=== PATIENT | male | born 1985 | race Caucasian/White ===

== ENCOUNTER 2017-02-03 16:06 | Observation (INO) | payer SELFPAY ==
[~2017-02-03] VITALS: Ht 188 cm; Wt 103.1 kg
--- NOTE | ~2017-02-03 | HP ---
PATIENT'S NAME: JOVANI COLLADO [facility] AGE: 32 Y [address] ROOM: [address] [address] LOCATION: [facility] ADMIT DATE: 02/03/2017 History & Physical DISCHARGE DATE: FAMILY PHYSICIAN: PHYSICIAN, NO ATTENDING PHYSICIAN: ALEXANDRO GARCIA DATE OF SERVICE: CHIEF COMPLAINT: Bloody stools and abdominal pain. HISTORY OF PRESENT ILLNESS: The patient is a previously healthy 32-year-old male who developed multiple repeating episodes of abdominal cramps and bloody mucousy diarrhea. These happened earlier in the day and he had to stop at multiple rest stops as he is a dedicated truck driver with multiple bowel movements of mucus and red blood. The patient denies any fevers or chills, but did have some nausea without vomiting associated with these symptoms. He has never had a similar presentation in the past. He had a mostly unremarkable workup in the ER except for a white count of 12 and a CAT scan which showed contracted distal colon and sigmoid. He denies any recent travel or exposure to sick contacts. He does admit approximately a 10-pound weight loss in the last couple of months that is typical for him of the summer months when he eats less. FAMILY HISTORY: The patient tells me that his mother may have Crohn's disease, but he is not sure. No other IBD in his family. REVIEW OF SYSTEMS: All systems have been reviewed and are negative aside from pertinent positives mentioned above. PAST MEDICAL HISTORY: Knee surgery. SOCIAL HISTORY: The patient is a dedicated truck driver. Smokes approximately half-a-pack cigarettes a day, but trying to quit. Endorses approximately 12 to 14 alcoholic beverages use per month and no other toxic habits. CURRENT MEDICATIONS: None. PATIENT'S NAME: JOVANI COLLADO [facility] AGE: 32 Y [address] ROOM: [address] [address] LOCATION: [facility] ADMIT DATE: 02/03/2017 History & Physical DISCHARGE DATE: FAMILY PHYSICIAN: PHYSICIAN, REE ATTENDING PHYSICIAN: ALEXANDRO GARCIA PHYSICAL EXAMINATION: VITAL SIGNS: Temperature 98.2, pulse is 70, respirations are 16, blood pressure 130/76, and saturating 94% on room air. GENERAL: Appears as a well-developed, well-nourished, young male, in no acute distress. NEUROLOGIC: Exam is nonfocal. EYES: Exam shows pupils are equal and reactive to light. LYMPHATICS: Exam shows no cervical lymphadenopathy. ENDOCRINE: Exam shows no thyromegaly. LUNGS: Clear to auscultation. HEART: Rate is regular. GI: Abdomen is soft, diffusely tender with a positive Chris sign, and diminished bowel sounds especially in the left upper quadrant. : Reveals no costovertebral angle tenderness. VASCULAR: A 2+ pedal pulses. MUSCULOSKELETAL: Exam is unremarkable. SKIN: Warm and dry. PSYCHIATRIC: Appropriate mood, cognition, and affect. LABORATORY DATA: Studies performed in the ER also significant for an AST of 49 in addition to the abnormalities mentioned in the HPI. ASSESSMENT AND PLAN: This is a 32-year-old male who will be admitted for observation with hematochezia, but no anemia. The patient has been started on Cipro and Flagyl and will continue these until we get his stool studies back. We will provide him with hydration and symptomatic support. We will get a right upper quadrant ultrasound to rule out possible cholecystitis given positive Chris's sign and a very mild elevation of AST. We will consider Gastroenterology evaluation. Additional management will depend on clinical course. Tobaccoism. We will offer the patient nicotine patch, which he agreed to use. Additional management will depend on clinical course. Time dedicated to this admission is 25 minutes. MD ELVIA THACKER/chase PATIENT'S NAME: JOVANI COLLADO [facility] AGE: 32 Y [address] ROOM: [address] [address] LOCATION: [facility] ADMIT DATE: 02/03/2017 History & Physical DISCHARGE DATE: FAMILY PHYSICIAN: PHYSICIAN, NO ATTENDING PHYSICIAN: ALEXANDRO GARCIA /[id number] D: 143 T: 402 HISTORY & PHYSICAL
--- NOTE | ~2017-02-03 | DS ---
PATIENT'S NAME: JOVANI COLLADO [facility] AGE: 32 Y [address] ROOM: [id number] [place], [place] [address] LOCATION: [facility] ADMIT DATE: 02/03/2017 Discharge Summary DISCHARGE DATE: 02/05/2017 FAMILY PHYSICIAN: PHYSICIAN, NO ATTENDING PHYSICIAN: Johan Acosta V DISCHARGE DIAGNOSES: 1. Colitis. 2. Hematochezia without anemia. 3. Nausea. 4. Heartburn. HOSPITAL COURSE: Please refer to admitting history and physical as dictated by Dr. Lu. Briefly, the patient was admitted to [facility] with hematochezia and abdominal cramping. He had 1 episode of bloody diarrhea while admitting and subsequently had no further. C. diff was negative. O and P were negative. Hemoglobin upon admit was 15.3, WBC 12.0, fecal white blood cells were positive, occult blood was positive. CT scan of his abdomen was negative except for noted transverse colon was markedly contracted. Ultrasound of the abdomen was unremarkable. The patient was started on IV fluids. Percocet and morphine were used to manage his pain. He was made n.p.o. Dr. Nguyen did kindly see the patient. Recommended a flexible sigmoidoscopy which was performed on 02/05/2017. There was noted to have a small area of erythema in the sigmoid colon, which was biopsied. Further solid stool prevented further examination. It was recommended that he proceed with an EGD and colonoscopy the following day, however, the patient wanted to eat solid food. Therefore, he ate a sandwich, it was discussed in detail the need for colonoscopy and EGD. The patient was agreeable to proceed. Discussed with Dr. Nguyen, he recommended to follow up as an outpatient with EGD and colonoscopy next week and to continue Cipro and Flagyl for 10 days. He was noted to have some dizziness. Orthostatic blood pressures were checked, it was recommended that he change position slowly. He was tolerating a regular diet on the day of discharge. His abdominal pain was well controlled with an occasional Percocet. His vital signs were stable. Instructed the patient that he cannot drive while taking narcotics. He should avoid NSAIDs, aspirin, ibuprofen and Aleve etc., and on 02/05/2017, the patient was stable. It was recommended he could be discharged to home. He did need a primary care provider and wished to follow up with [facility]. I did call and speak with Dr. Dillon Hoffman. He will follow the patient next week with the CBC and BMP at that time. LABORATORY DATA: Sodium stable 139 to 141, potassium 3.8 to 4.0, glucose 98, BUN 11 to 13, creatinine 0.8. Alkaline phosphatase is 60, AST 49, upon admit 41 the following day, ALT 70 upon admit 59 the following day, GFR remained greater than 60. Amylase 27, lipase 139, CRP less than 0.29. WBC 12.0 upon PATIENT'S NAME: JOVANI COLLADO [facility] AGE: 32 Y [address] ROOM: [address] [address] LOCATION: [facility] ADMIT DATE: 02/03/2017 Discharge Summary DISCHARGE DATE: 02/05/2017 FAMILY PHYSICIAN: PHYSICIAN, NO ATTENDING PHYSICIAN: Johan Acosta V admit, 7.4 prior to discharge. Hemoglobin 13.2 to 15.3, and platelets 210. IMAGING: Radiology reports, please refer to hospital course. DISCHARGE MEDICATIONS: 1. Cipro 500 mg p.o. twice daily for 10 days. 2. Flagyl 500 mg p.o. every 8 hours x10 days. 3. Probiotic of choice as per box instructions. 4. Tylenol 650 mg p.o. q.6 hours p.r.n. pain. Do not exceed 4000 mg per day. 5. Percocet 5/325 one tablet p.o. q.6 hours p.r.n. severe pain. Do not exceed 4000 mg of acetaminophen per 24 hours #10. DISCHARGE INSTRUCTIONS: The patient will be discharged to home. Diet as tolerated. Activity as tolerated. Follow up with Dr. Hoffman with CBC and BMP in 3-5 days. Follow up with [facility] for EGD and colonoscopy next week which will be scheduled as well as biopsies taken on 02/05/2017. No driving when on narcotics. No alcohol use. Avoid NSAIDs: Aspirin, ibuprofen, Aleve. Time spent at the bedside as well as in coordination of care 45 minutes, 3 minutes were spent on tobacco cessation. Thank you for allowing us to participate in the care of this patient as he has been hospitalized at [facility]. MIR PASTOR APRN FOR MD SHEBA MCLEAN/modl /[id number] CC: MD Stefanie Hatch MD d: 02/06/17 0648 t: 02/17/17 1618, DISCHARGE SUMMARY
--- NOTE | ~2017-02-03 | ER ---
PATIENT'S NAME: JOVANI COLLADO [facility] AGE: 32 Y [address] ROOM: [place] [address] LOCATION: [facility] ADMIT DATE: 02/03/2017 ER/Outpatient Report DISCHARGE DATE: FAMILY PHYSICIAN: PHYSICIAN, NO ATTENDING PHYSICIAN: ALEXANDRO GARCIA Time of patient arrival is 1606. Time of patient evaluation is 1615. CHIEF COMPLAINT: Bloody stools and abdominal pain. HISTORY OF PRESENT ILLNESS: This is a 32-year-old male, who presents to the ER. He states he woke up this morning not feeling well. He states his abdomen started cramping then he started having multiple bloody bowel movements. He states at times the bowel movements are very large clots of blood. He states that he has never had anything like this before. It does make him feel nauseated. He has had no vomiting. He states he has had no fever or chills. No troubles with urination. His pain is crampy in nature and worst of this pain is in his right lower quadrant. The patient is a gasoline truck crane operator. He claims that he has had no recent camping trips. He does not drink any well water etc. ALLERGIES: PENICILLIN. MEDICATIONS: None. PAST MEDICAL HISTORY: Asthma. PAST SURGICAL HISTORY: Right knee surgery and left wrist surgery. SOCIAL HISTORY: He does chew tobacco and smokes cigarettes. Drinks alcohol socially. REVIEW OF SYSTEMS: All systems reviewed and were negative with the exception of those discussed in the HPI. PHYSICAL EXAMINATION: VITAL SIGNS: Height 6 feet 2 inches stated, weight 103.1 kg, taken. Blood pressure is 130/78, pulse 112, respirations 16, temperature 97.6 degrees tympanically, and saturations 93% on room air. Watts Coma Score is 15. PATIENT'S NAME: JOVANI COLLADO [facility] AGE: 32 Y [address] ROOM: [place] [address] LOCATION: [facility] ADMIT DATE: 02/03/2017 ER/Outpatient Report DISCHARGE DATE: FAMILY PHYSICIAN: PHYSICIAN, NO ATTENDING PHYSICIAN: ALEXANDRO GARCIA GENERAL: Alert, anxious appearing 32-year-old, in moderate distress. HEENT: Head: Normocephalic. He does display moist mucous membranes. Eyes: Pupils are equal and reactive to light. NECK: Supple. No lymphadenopathy. LUNGS: Clear to auscultation bilaterally. No wheezes or crackles. HEART: Tachycardic. Normal rhythm. ABDOMEN: Soft. He has tenderness and guarding in all 4 quadrants with palpation. He has hyperactive bowel sounds. No masses were palpated. EXTREMITIES: No clubbing or cyanosis. He does have full range of motion of all limbs. SKIN: Warm, dry, and intact. LABORATORY DATA: CBC: White count is 12.0, hemoglobin is 15.3, platelets 293. ANC is 8.5, sodium is 140, potassium 3.8, ALT is 70, AST is 79, estimated GFR is greater than 60, BUN 11, and creatinine 0.8. Clot was drawn. Stool series was obtained. Fecal white blood cells, few white blood cells seen. No occult blood was positive. C. difficile is negative. Ova and parasite screen were negative. Shigella will be pending. CT scan was done shows colitis and read by radiology. IMPRESSION: 1. Abdominal pain with CT findings of colitis. 2. Hematochezia. ASSESSMENT AND PLAN: We did start an IV here in the emergency room. I did give him IV fluids and 4 mg of Zofran. I did give him a total of 1 mg of Dilaudid here for his pain. The patient states he does not feel comfortable going home due to the pain, so I did call Dr. Arriaga, who is on for the Hospitalist Service, and he will be admitting for observation. We did start Flagyl 500 mg IV along with Cipro 400 mg IV here in the emergency room. The patient's care will be turned over the hospital service at this time. The patient understands and agrees with care. JOLEEN JAUREGUI PA-C FOR MD MIGEL ANNA/chase /[id number] d: 02/03/17 2316 t: 02/13/17 2019, OUTPATIENT REPORT
--- NOTE | ~2017-02-03 | CON ---
PATIENT'S NAME: JOVANI COLLADO [facility] AGE: 32 Y [address] ROOM: [address] [place], [place] [address] LOCATION: G3N ADMIT DATE: 02/03/2017 Consultation DISCHARGE DATE: FAMILY PHYSICIAN: PHYSICIAN, NO ATTENDING PHYSICIAN: ZACHARY DIAS V DATE OF CONSULTATION: 02/04/2017 REFERRING PHYSICIAN: SOILA OLIVIA MD REASON FOR CONSULTATION: Hematochezia, abdominal cramping. 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 The patient states that yesterday, he woke up feeling well. As he began hauling a truck load, he had severe abdominal cramping that he states was in his lower quadrants, but more intensified in the right lower quadrant. This subsequently was followed by bright red blood per rectum. He states, at that time, there was no stool, that it was straight bright red blood. The patient was feeling nauseous at that time. He continued on for work. This initial episode was followed by 4 to 5 more episodes of bright red blood. He denies any vomiting. No fever or chills associated with it. He then followed up into the [facility] Emergency Room for further evaluation. On workup, the patient has undergone a CT as well as abdominal ultrasound that both have been essentially normal. Hemoglobin on admission was 15.3, with a recheck this morning of 14.1. The patient continues to complain of right lower quadrant pain as well as diffuse abdominal pain throughout. The patient currently denies any chest pain or chest pressure. He denies any history of upper endoscopy or colonoscopy. There is a questionable family history of Crohn's in the patient's mother as well as colon cancer on the maternal side, though unsure of details regarding this. The patient also states that he has daily heartburn and takes numerous [place] throughout the day. He does admit to utilizing ibuprofen 800 mg daily as well. PAST MEDICAL HISTORY: Heartburn and tobaccoism. PAST SURGICAL HISTORY: Knee surgery. No history of upper endoscopy or colonoscopy. SOCIAL HISTORY: The patient is a truck driving. Smokes approximately half a pack of cigarettes per day. Endorses 12 to 14 alcoholic beverages per month. He denies any illicit drug use. PATIENT'S NAME: JOVANI COLLADO [facility] AGE: 32 Y [address] ROOM: [id number] [place], [place] [address] LOCATION: G3N ADMIT DATE: 02/03/2017 Consultation DISCHARGE DATE: FAMILY PHYSICIAN: PHYSICIAN, NO ATTENDING PHYSICIAN: ZACHARY DIAS V FAMILY HISTORY: Questionable family history of Crohn's disease in the patient's mother. There is also maternal side of possible colon cancer, per his recollection. The patient's father also has heart issues, requiring quadruple bypass and stents. The patient's mother is diabetic as well. ALLERGIES: PENICILLIN. CURRENT MEDICATIONS: Please refer to the medication administration record. REVIEW OF SYSTEMS: An all-point review of systems was completed, all were negative except for those identified in the History of Present Illness. PHYSICAL EXAMINATION: GENERAL: A very pleasant, 32-year-old gentleman who appears to be in no acute distress. VITAL SIGNS: Temperature 97.7, pulse is 58, respirations of 16, blood pressure 113/69, and oxygen saturation is 92% on room air. SKIN: [place], warm, and dry. No jaundice. HEENT: Head is normocephalic and atraumatic. Pupils equal, round, and reactive to light. Sclerae are clear, nonicteric. Oral mucosa is pink and moist. No thyromegaly. NECK: Soft and supple. CARDIOVASCULAR: Regular. Normal S1 and S2. RESPIRATORY: Respirations even and unlabored. Lungs clear to auscultation. ABDOMEN: Soft, round. Diffusely tender, more intensity noted in the right upper quadrant as well as the right lower quadrant. The patient also has some guarding noted in the midepigastric area. Bowel sounds are positive x4 quadrants. MUSCULOSKELETAL: No muscle weakness or atrophy. EXTREMITIES: No clubbing, cyanosis, or edema. NEUROLOGIC: Grossly nonfocal. LABS AND DIAGNOSTICS: White blood cell count 8.3, hemoglobin of 14.1, hematocrit of 41.5, platelets of 225. Chemistry panel includes a glucose of 96, BUN of 12, creatinine 0.8, sodium of 141, potassium of 3.8 chloride of 109, CO2 of 25. Albumin of 3.3. AST of 41, ALT of 59, alkaline phosphatase of 60. Total bilirubin 0.3. Amylase 27, lipase of 139. Diagnostics do include an abdominal ultrasound that was unremarkable and normal. CT abdomen and pelvis with contrast completed on admission was a normal study as well. Stool studies were also completed. C diff negative. O and P negative. Stool culture was no growth PATIENT'S NAME: JOVANI COLLADO [facility] AGE: 32 Y [address] ROOM: [place] [address] LOCATION: [facility] ADMIT DATE: 02/03/2017 Consultation DISCHARGE DATE: FAMILY PHYSICIAN: PHYSICIAN, NO ATTENDING PHYSICIAN: ZACHARY DIAS V after one day and pending. Fecal white blood cells were few white blood cells seen. ASSESSMENT AND PLAN: 1. Again, this is a very pleasant, 32-year-old gentleman who was admitted through the emergency room after being evaluated for abdominal cramping and bloody mucus diarrhea. The patient states that this has continued throughout yesterday and today. Further workup has been completed with CT negative, abdominal ultrasound negative, as well as stool workup negative. At this time, it is recommended for the patient to undergo a flexible sigmoidoscopy in evaluation for the hematochezia. The patient will be given no prep and/or enema to evaluate mucosa. We will also recheck stool for C diff and evaluate for fecal fat and elastase. Thank you for this consult. LETICIA TRACY APRN FOR MD JEAN-PAUL HUNTER/modl /[id number] d: 02/04/17 1414 t: 02/10/17 1309, CONSULTATION REPORT
[~2017-02-03 16:06] MED LIST: OXYCONTIN EXTEN10 MG PO; PERCOCET 5-3251 EACH PO; VALIUM5 MG PO
[2017-02-03 17:10] LABS: BASOPHIL % 0.3 %; EOSINOPHIL # 0.2 K/uL (0.0-0.5); EOSINOPHIL % 1.5 %; HEMATOCRIT 43.7 % (37.0-53.0); HEMOGLOBIN 15.3 g/dL (12.0-17.0); IMMATURE GRANULOCYTE # 0.1 K/uL (0.0-0.3); IMMATURE GRANULOCYTE % 0.7 %; LYMPHOCYTE # 2.6 K/uL (0.8-4.0); LYMPHOCYTE % 21.3 %; MCH 33.3 pg (27.0-34.0); MONOCYTE # 0.7 K/uL (0.0-1.0); MONOCYTE % 5.8 %; MPV 11.1 fl (9.4-12.4); NEUTROPHIL # (ANC) 8.5 K/uL (1.4-9.0); NEUTROPHIL % 70.4 %; NRBC % 0 /100WBC (0-0.00); PLATELET COUNT 293 K/uL (150-450); RDW-CV 12.4 % (11.9-14.6)
[2017-02-03 17:18] LABS: ALBUMIN 4.3 gm/dL (3.5-5.0); ALK PHOS 73 IU/L (33-138); ALT 70 IU/L (12-78); ANION GAP 11.8 (10.0-19.0); AST 49 IU/L (10-40); BLOOD UREA NITROGEN 11 mg/dL (6-24); CALCIUM 9.1 mg/dL (8.5-10.5); CHLORIDE 108 mMol/L (96-110); CO2 24 mMol/L (22-32); CREATININE 0.8 mg/dL (0.6-1.3); ESTIMATED GFR (MDRD EQUATION) > 60; POTASSIUM 3.8 mMol/L (3.7-5.1); SODIUM 140 mMol/L (135-145); TOTAL BILIRUBIN 0.5 mg/dL (0.0-1.5)
--- NOTE | 2017-02-03 19:45 | NUR ---
AT 1915 PATIENT ARRIVED TO FLOOR PER WHEELCHAIR FORM ER. C/O SEVERE LOWER ABDOMINAL CRAMPING STARTED THIS AM AROUND 0930. SHARP PAIN ACROSS LOWER ABDOMEN MORE ON RIGHT SIDE NAUSEA, NO VOMITING. PAIN RATED AT 5. HAD TOTAL OF 7 BLOODY MUCUS STOOLS TODAY. HAS IV FLUIDS NS 100ML HR INFUSING LEFT HAND. HAD CT OF ABDOMEN SHOWING COLITIS. WHITE COUNT 12.O. HGB 15.0. VITAL SIGNS 98.2 TEMP BP 130/76, HR 70, RESP 16. ELECTROLYTES SHOWED OK. HAD BEEEN PREVIOUSLY MEDICATED IN ER DILAUDID 0.5MG IV AT 1730. HAD ZOFRAN IV AT 1700 FOR NAUSEA IN ER. WT LOSS OF 10 LBS IN A MONTH. ALLERGIES LOLIS PENCILLIN.
--- NOTE | 2017-02-04 03:21 | NUR ---
Significant Event: A/O X 3. IV FLUIDS INFUSING LEFT HAND. ALLERGY TO PENCILLIN. NPO AFTER MIDNOC FOR ULTRSOUND OF ABDOMEN TODAY. PATIENT IN FOR OBSERVATION FOR COLITIS. HAD CT OF ABDOMEN DONE IN ER SHOWING COLITIS. PATIENT STARTED HAVING DIARRHEA BLOODY MUCOUS STOOLS AROUND 929. HAD TOTAL OF 7. HAS SEVERE LOWER ABDOMEN CRAMPING, MORE ON RIGHT SIDE, RATED PAIN 6, HAD MORPHINE 2MG IV AFTER ADMIT TO FLOOR AROUND 1914. LATER PAIN 4, TOLERABLE. TAKEN 50% OF EVENING MEAL. NO FURTHER STOOLS SINCE ADMISSION. VOIDS IN URINAL. ON CIPRO AND FLAGYL. HAS NICOTINE PATCH LEFT UPPER ARM. BILATERAL FOOT PUPS TO FEET. Follow up:
[2017-02-04 05:42] LABS: BASOPHIL % 0.4 %; EOSINOPHIL # 0.3 K/uL (0.0-0.5); EOSINOPHIL % 3.5 %; HEMATOCRIT 41.5 % (37.0-53.0); HEMOGLOBIN 14.1 g/dL (12.0-17.0); IMMATURE GRANULOCYTE % 0.4 %; LYMPHOCYTE # 2.1 K/uL (0.8-4.0); LYMPHOCYTE % 25.7 %; MCV 97.2 fl (83.0-98.0); MONOCYTE # 0.6 K/uL (0.0-1.0); MONOCYTE % 7.4 %; MPV 11.1 fl (9.4-12.4); NEUTROPHIL # (ANC) 5.2 K/uL (1.4-9.0); NEUTROPHIL % 62.6 %; NRBC % 0 /100WBC (0-0.00); RBC 4.27 M/uL (4.00-6.00); RDW-CV 12.6 % (11.9-14.6); WBC 8.3 K/uL (4.0-11.0)
[2017-02-04 05:44] LABS: PLATELET COUNT 225 K/uL (150-450)
[2017-02-04 06:01] LABS: ALBUMIN 3.3 gm/dL (3.5-5.0); ALK PHOS 60 IU/L (33-138); ALT 59 IU/L (12-78); ANION GAP 10.8 (10.0-19.0); AST 41 IU/L (10-40); BLOOD UREA NITROGEN 12 mg/dL (6-24); CHLORIDE 109 mMol/L (96-110); CO2 25 mMol/L (22-32); CREATININE 0.8 mg/dL (0.6-1.3); ESTIMATED GFR (MDRD EQUATION) > 60; POTASSIUM 3.8 mMol/L (3.7-5.1); SODIUM 141 mMol/L (135-145); TOTAL PROTEIN 6.4 g/dL (6.0-8.4)
[2017-02-04 06:02] LABS: TOTAL BILIRUBIN 0.3 mg/dL (0.0-1.5)
[2017-02-04 15:42] LABS: BASOPHIL % 0.2 %; EOSINOPHIL # 0.2 K/uL (0.0-0.5); EOSINOPHIL % 2.5 %; HEMOGLOBIN 13.7 g/dL (12.0-17.0); IMMATURE GRANULOCYTE % 0.3 %; LYMPHOCYTE # 2.7 K/uL (0.8-4.0); LYMPHOCYTE % 30.3 %; MCH 33.2 pg (27.0-34.0); MCHC 34.3 gm/dL (32.0-36.5); MCV 96.9 fl (83.0-98.0); MONOCYTE # 0.7 K/uL (0.0-1.0); NEUTROPHIL # (ANC) 5.2 K/uL (1.4-9.0); NEUTROPHIL % 58.7 %; NRBC % 0 /100WBC (0-0.00); PLATELET COUNT 236 K/uL (150-450); RBC 4.13 M/uL (4.00-6.00); RDW-CV 12.3 % (11.9-14.6); WBC 8.8 K/uL (4.0-11.0)
[2017-02-04 16:00] LABS: BLOOD UREA NITROGEN 13 mg/dL (6-24); CALCIUM 8.3 mg/dL (8.5-10.5); CHLORIDE 108 mMol/L (96-110); CO2 25 mMol/L (22-32); CREATININE 0.8 mg/dL (0.6-1.3); ESTIMATED GFR (MDRD EQUATION) > 60; SODIUM 139 mMol/L (135-145)
--- NOTE | 2017-02-04 17:06 | NUR ---
Significant Event: PT ALERT AND ORIENTED. UP IN THE ROOM BY SELF. PT ON CLEAR LIQUIDS AND NPO AFTER MIDNIGHT. FLEX SIG SCHEDULED FOR TOMORROW IN THE AM. NO PREPS NEEDED. IV FLUIDS CONT. PERCOCET AND IV MORPHINE FOR ABDOMEN PAIN. FAMILY HERE THIS AFTERNOON. Follow up:
--- NOTE | 2017-02-05 04:08 | NUR ---
Pt NPO after midnight for scope this morning. Pt taking morphine and percocet for pain. No stools this shift. Permits signed.
[2017-02-05 04:57] LABS: BASOPHIL % 0.1 %; EOSINOPHIL # 0.2 K/uL (0.0-0.5); EOSINOPHIL % 3.1 %; HEMATOCRIT 38.3 % (37.0-53.0); HEMOGLOBIN 13.2 g/dL (12.0-17.0); IMMATURE GRANULOCYTE % 0.3 %; LYMPHOCYTE # 2.5 K/uL (0.8-4.0); LYMPHOCYTE % 33.8 %; MCH 33.7 pg (27.0-34.0); MCHC 34.5 gm/dL (32.0-36.5); MCV 97.7 fl (83.0-98.0); MONOCYTE # 0.5 K/uL (0.0-1.0); MONOCYTE % 7.3 %; MPV 11.3 fl (9.4-12.4); NEUTROPHIL # (ANC) 4.1 K/uL (1.4-9.0); NEUTROPHIL % 55.4 %; NRBC % 0 /100WBC (0-0.00); PLATELET COUNT 210 K/uL (150-450); RBC 3.92 M/uL (4.00-6.00); RDW-CV 12.3 % (11.9-14.6); WBC 7.4 K/uL (4.0-11.0)
[2017-02-05] MEDS ORDERED: CIPRO500 MG PO (16:53)
[2017-02-05] MEDS ORDERED: PERCOCET 5-3251 EACH PO (16:54)
[2017-02-05] MEDS ORDERED: FLAGYL500 MG PO (16:54)
[2017-02-05] MEDS ORDERED: PROBIOTIC1 EAC1 PO (16:55)
[2017-02-05] MEDS ORDERED: TYLENOL325 MG PO (16:56)
--- NOTE | 2017-02-05 19:16 | NUR ---
Pt discharged to go home with his sister at 1800. He rated Rt lower abd pain at a 6. Pt denies nausea. Pt has been up and about room and rachel well. Ate regular supper and tolerated without nausea. Pt verbalizes understanding of discharge instructions including bowel prep and return for scope on Wednesday. States understanding of clear liquid diet on Wednesday. Pt has belongings. Discharged to sisters home in stable condition per wheelchair to front door.
== END 2017-02-05 17:53 | disposition disaster alternative care site (69) ==
LOC: GMED 16:06 → G3N 18:43
PROVIDERS: Physician Assistant Medical; ADMIT Internal Medicine
PROC: 0DBN8ZX Excision of Sigmoid Colon, Via Natural or Artificial Opening Endoscopic, Diagnostic (ICD-10-PCS; principal; 2017-02-05)
PROC: 0DBL8ZX Excision of Transverse Colon, Via Natural or Artificial Opening Endoscopic, Diagnostic (ICD-10-PCS; 2017-02-05)
DX: K63.89 Other specified diseases of intestine (principal); J45.909 Unspecified asthma, uncomplicated; K92.1 Melena; F17.210 Nicotine dependence, cigarettes, uncomplicated; F17.220 Nicotine dependence, chewing tobacco, uncomplicated; Z88.0 Allergy status to penicillin; Z98.890 Other specified postprocedural states
CPT/HCPCS: G0378; J0744; J1170; J2270; J2405; J7030; Q9967

== ENCOUNTER → 2017-02-10 | Day surgery (SDC) | payer SELFPAY ==
[~2017-02-10] VITALS: Ht 185.4 cm; Wt 101.2 kg
[~2017-02-10] MED LIST changes: +CIPRO500 MG PO; +FLAGYL500 MG PO; +PROBIOTIC1 EAC1 PO; +TYLENOL325 MG PO
== END | disposition disaster alternative care site (69) ==
LOC: GPOC 02-09 15:00 → GEND 08:29 → GPOC 16:00
PROC: 0DB58ZX Excision of Esophagus, Via Natural or Artificial Opening Endoscopic, Diagnostic (ICD-10-PCS; principal; 2017-02-10)
PROC: 0DBP8ZX Excision of Rectum, Via Natural or Artificial Opening Endoscopic, Diagnostic (ICD-10-PCS; 2017-02-10)
DX: K31.9 Disease of stomach and duodenum, unspecified (principal); K21.9 Gastro-esophageal reflux disease without esophagitis; J45.909 Unspecified asthma, uncomplicated; F17.210 Nicotine dependence, cigarettes, uncomplicated; Z88.0 Allergy status to penicillin; Z91.040 Latex allergy status; Z98.890 Other specified postprocedural states; Z79.899 Other long term (current) drug therapy
CPT/HCPCS: J2001; J7030